=== PATIENT | female | born 1945 | race Two or more races ===

== ENCOUNTER 2018-03-29 22:01 | Emergency (ER) | payer MEDICARE, OTHER ==
[~2018-03-29] VITALS: Ht 162.6 cm; Wt 77.1 kg
[2018-03-29 22:01] VITALS: BP 124/56
[~2018-03-29 22:01] MED LIST: SYNTHROID137 MCG ORAL; SYNTHROID50 MCG ORAL
[2018-03-29] MEDS ORDERED: Sodium Chloride 500ML 500 ML IV ONE (22:10)
--- NOTE | 2018-03-29 22:21 | Emergency Room Report ---
History of Present Illness General Chief Complaint: Syncope Source: Patient Present Illness HPI Patient presents by paramedics for reports of near-syncope/syncopal episode Patient daughter here as well who was at the scene Patient reports that she last ate around 1:00 in the afternoon She had a bloody Marisela and was getting ready to eat Patient started feeling nauseated and somewhat lightheaded Patient sounds to have lost consciousness for a few seconds Did become increasingly nauseated and vomited one time Upon arrival the patient reports that she feels significantly improved denies any focal weakness denies any chest pain denies any headache Allergies: Coded Allergies: No Known Allergies (Unverified , 03/29/18) Patient History Past Medical History: see triage record Pertinent Family History: none Last Menstrual Period: 1987 Now: No : 1 Para: 1 Reviewed Nursing Documentation: PMH: Agreed; PSxH: Agreed Nursing Documentation-PMH Past Medical History: No History, Except For Hx Cardiac Problems: No - hypothyroid Hx Hypertension: Yes Review of Systems All Other Systems: negative except mentioned in HPI Physical Exam Vital Signs Date Time Temp Pulse Resp B/P (MAP) Pulse Ox O2 Delivery O2 Flow Rate FiO2 03/29/18 21:54 98.4 66 16 121/66 99 Room Air Sp02 EP Interpretation: reviewed, normal General Appearance: well appearing, no apparent distress Head: normocephalic, atraumatic Eyes: bilateral eye PERRL, bilateral eye EOMI ENT: hearing grossly normal, normal pharynx, TMs + canals normal, uvula midline Neck: full range of motion, supple, no meningismus, no bony tend Respiratory: lungs clear, normal breath sounds, no rhonchi, no respiratory distress, no retraction, no accessory muscle use Cardiovascular #1: normal peripheral pulses, regular rate, rhythm, no edema, no gallop, no JVD, no murmur Gastrointestinal: normal bowel sounds, non tender, soft, no mass, no organomegaly, non-distended, no guarding, no hernia, no pulsatile mass, no rebound Genitourinary: no CVA tenderness Musculoskeletal: normal inspection Neurologic: oriented x3, responsive, room manager III-XII nml as tested, motor strength/ tone normal, sensory intact Psychiatric: mood/affect normal Skin: normal color, no rash, warm/dry, palpation normal Lymphatic: normal inspection, no adenopathy Medical Decision Making Diagnostic Impression: Primary Impression: Syncope ER Course Patient is a fairly complex patient with multiple differential to consideration including but not limited to cardiac cardiopulmonary and vascular emergencies Patient's blood work shows a white blood cell count very minimally elevated Otherwise all else within normal limits EKG showed nonspecific findings but no obvious ST elevation Patient remains a symptomatically throughout her stay I did discuss observation status in the hospital versus going home and the patient requesting to go home at this time Given the observation status here in the patient's improvement she will have close outpatient follow-up Labs Test 03/29/18 22:32 White Blood Count 11.6 K/UL (4.8-10.8) Red Blood Count 4.59 M/UL (4.20-5.40) Hemoglobin 13.7 G/DL (12.0-16.0) Hematocrit 40.7 % (37.0-47.0) Mean Corpuscular Volume 89 FL (80-99) Mean Corpuscular Hemoglobin 29.9 PG (27.0-31.0) Mean Corpuscular Hemoglobin Concent 33.7 G/DL (32.0-36.0) Red Cell Distribution Width 12.3 % (11.6-14.8) Platelet Count 171 K/UL (150-450) Mean Platelet Volume 8.0 FL (6.5-10.1) Neutrophils (%) (Auto) 76.4 % (45.0-75.0) Lymphocytes (%) (Auto) 14.8 % (20.0-45.0) Monocytes (%) (Auto) 6.7 % (1.0-10.0) Eosinophils (%) (Auto) 1.3 % (0.0-3.0) Basophils (%) (Auto) 0.8 % (0.0-2.0) Sodium Level 140 MMOL/L (136-145) Potassium Level 3.5 MMOL/L (3.5-5.1) Chloride Level 101 MMOL/L (98-107) Carbon Dioxide Level 28 MMOL/L (21-32) Anion Gap 11 mmol/L (5-15) Blood Urea Nitrogen 33 mg/dL (7-18) Creatinine 1.3 MG/DL (0.55-1.30) Estimat Glomerular Filtration Rate mL/min (>60) Glucose Level 107 MG/DL (74-106) Calcium Level 8.7 MG/DL (8.5-10.1) Total Bilirubin 0.7 MG/DL (0.2-1.0) Aspartate Amino Transf (AST/SGOT) 23 U/L (15-37) Alanine Aminotransferase (ALT/SGPT) 19 U/L (12-78) Alkaline Phosphatase 63 U/L (46-116) Total Creatine Kinase 168 U/L (26-308) Creatine Kinase MB 5.9 NG/ML (0.0-3.6) Creatine Kinase MB Relative Index 3.5 Troponin I 0.000 ng/mL (0.000-0.056) Total Protein 7.7 G/DL (6.4-8.2) Albumin 3.7 G/DL (3.4-5.0) Globulin 4.0 g/dL Albumin/Globulin Ratio 0.9 (1.0-2.7) Lipase 148 U/L (73-393) Serum Alcohol < 3 mg/dL EKG Diagnostic Results Rate: normal Rhythm: NSR ST Segments: other - Nonspecific ST changes Rhythm Strip Diag. Results EP Interpretation: yes Rate: 60 Rhythm: NSR, no PVC's, no ectopy Last Vital Signs Date Time Temp Pulse Resp B/P (MAP) Pulse Ox O2 Delivery O2 Flow Rate FiO2 03/29/18 21:54 98.4 66 16 121/66 99 Room Air Status: improved Disposition: HOME, SELF-CARE Condition: Improved Additional Instructions: Patient is provided with the discharge instructions notified to follow up with primary doctor in the next 2-3 days otherwise return to the er with any worsening symptoms. Please note that this report is being documented using [employer] technology. This can lead to erroneous entry secondary to incorrect interpretation by the dictating instrument. Gilbert Arce DO Mar 29, 2018 22:21
[2018-03-29 22:55] LABS: BASOPHILS % (AUTO) 0.8 % (0.0-2.0); EOSINOPHILS % (AUTO) 1.3 % (0.0-3.0); HEMATOCRIT 40.7 % (37.0-47.0); HEMOGLOBIN 13.7 G/DL (12.0-16.0); LYMPHOCYTES % (AUTO) 14.8 % (20.0-45.0); MEAN CORPUSCULAR VOLUME 89 FL (80-99); MONOCYTES % (AUTO) 6.7 % (1.0-10.0); NEUTROPHILS % (AUTO) 76.4 % (45.0-75.0); PLATELET COUNT 171 K/UL (150-450); RED BLOOD COUNT 4.59 M/UL (4.20-5.40); RED CELL DISTRIBUTION WIDTH 12.3 % (11.6-14.8); WHITE BLOOD COUNT 11.6 K/UL (4.8-10.8)
[2018-03-29 23:04] LABS: ANION GAP 11 mmol/L (5-15); BLOOD UREA NITROGEN 33 mg/dL (7-18); CALCIUM 8.7 MG/DL (8.5-10.1); CARBON DIOXIDE 28 MMOL/L (21-32); CHLORIDE 101 MMOL/L (98-107); CREATININE 1.3 MG/DL (0.55-1.30); POTASSIUM 3.5 MMOL/L (3.5-5.1); SODIUM 140 MMOL/L (136-145)
[2018-03-29 23:36] LABS: ALANINE AMINOTRANSFERASE 19 U/L (12-78); ALBUMIN 3.7 G/DL (3.4-5.0); ALBUMIN/GLOBULIN RATIO 0.9 (1.0-2.7); ALKALINE PHOSPHATASE 63 U/L (46-116); ASPARTATE AMINO TRANSFERASE 23 U/L (15-37); BILIRUBIN,TOTAL 0.7 MG/DL (0.2-1.0); CKMB 5.9 NG/ML (0.0-3.6); CREATINE KINASE 168 U/L (26-308)
[2018-03-29 23:58] VITALS: BP 128/61
--- NOTE | 2018-03-30 15:02 | Cardiology Report ---
APPROVED REPORT EKG Measurement Heart [id number] HI [id number] Sinus bradycardia Left axis deviation Incomplete right bundle branch block Abnormal ECG
== END 2018-03-29 23:58 | disposition home or self-care (01) ==
LOC: EDBD 22:01 → EMR 23:17
DX: R55 Syncope and collapse (principal); I10 Essential (primary) hypertension; E03.9 Hypothyroidism, unspecified
CPT/HCPCS: 36415; 80053; 82550; 82553; 83690; 84484; 85025; 93005; 96374; 99284; G0480; J2405; J7040; 80329